=== PATIENT | male | born 1985 | race Hispanic/Latino ===

== ENCOUNTER → 2023-07-20 | Emergency (ER) | payer SELFPAY ==
[~2023-07-20] MED LIST: LORazepam 2 MG/ML VIAL ONE; NA CHLORIDE 0.9% 1,000 ML ONE
[2023-07-20 16:50] LABS: Absolute Lymphocytes (CBC) 1.8 K/uL (0.7-4.9); Hematocrit 45.9 % (39.6-49.0); Lymphocytes % 18.3 % (15.3-44.8); MCV 87.4 fL (80-100); MPV 7.2 fL (7.6-11.3); Platelets 307 thou/uL (152-406); RBC Red Blood Cell Count 5.25 M/uL (4.33-5.43)
[2023-07-20 17:10] LABS: ALT/SGPT 69 U/L (16-61); AST/SGOT 37 U/L (15-37); Alkaline Phosphatase 121 U/L (45-117); BUN Blood Urea Nitrogen 10 mg/dL (7-18); Bicarbonate 25 mEq/L (21-32); Bilirubin Direct 0.2 mg/dL (0-0.2); Bilirubin Indirect, Calculated 0.5 mg/dL (0.2-0.8); Bilirubin Total 0.7 mg/dL (0.2-1.0); Glomerular Filtration Rate 99 ml/min (=/>90); Glucose Level 121 mg/dL (74-106); Magnesium 1.6 mg/dL (1.6-2.4); Potassium 3.7 mEq/L (3.5-5.1); Protein, Total 8.5 g/dL (6.4-8.2); Sodium Level 135 mEq/L (136-145)
--- NOTE | 2023-07-20 17:20 | RAD REPORT ---
EXAM DESCRIPTION: [place] Single View07/20/2023 4:49 pm CLINICAL HISTORY: PALPITATIONS COMPARISON: No comparisons TECHNIQUE: Portable AP view of the chest. FINDINGS: The lungs are clear. No pneumothorax or effusion. The cardiomediastinal contours are unre markable. IMPRESSION: No acute cardiopulmonary process.
[2023-07-20 17:42] LABS: Troponin High Sensitivity < 3.0 pg/mL (<58.9)
--- NOTE | 2023-07-20 17:54 | EDPHYS ---
Physician Documentation [facility] Name: Alonzo Gaytan Age: 37 yrs Sex: Male : 1985 Arrival Date: 07/20/2023 Time: 15:59 Bed 22 Private MD: ED Physician Andrei Villa HPI: 07/20 16:37 This 37 yrs old Male presents to ER via Ambulatory with complaints of ms3 Palpitations. 16:37 37-year-old male with no past medical history presents for palpitations began 1 hour ms3 prior to arrival. Patient denies chest pain. Patient endorses nausea. Patient denies vomiting. Patient denies any alleviating or inciting factors. Patient endorses drinking . Pepper, denies energy drinks or coffee. Historical: - Allergies: 16:16 No Known Allergies; bp - Home Meds: 16:16 None [Active]; bp - PMHx: 16:16 None; bp - Immunization history:: Adult Immunizations up to date. - Social history:: Smoking status: Patient denies any tobacco usage or history of. ROS: 16:48 Constitutional: Negative for fever, and chills. Neck: Negative for injury, pain, and ms3 swelling, Respiratory: Negative for shortness of breath, cough, wheezing, and pleuritic chest pain, Abdomen/GI: Negative for abdominal pain, nausea, vomiting, diarrhea, and constipation, MS/Extremity: Negative for injury and deformity, Skin: Negative for injury, rash, and discoloration, 16:48 Cardiovascular: Positive for palpitations, 16:48 All other systems are negative, Exam: 16:48 Constitutional: This is a well developed, well nourished patient who is awake, alert, ms3 and in no acute distress. Head/Face: Normocephalic, atraumatic. Neck: Trachea midline, no cervical lymphadenopathy. Supple, full range of motion without nuchal rigidity, or vertebral point tenderness. No Meningismus. Chest/axilla: Normal chest wall appearance and motion. Nontender with no deformity. 16:48 Respiratory: Lungs have equal breath sounds bilaterally, clear to auscultation and percussion. No rales, rhonchi or wheezes noted. No increased work of breathing, no retractions or nasal flaring. 16:48 Cardiovascular: Rate: tachycardic, Rhythm: regular, Pulses: no pulse deficits are appreciated, Heart sounds: normal, normal S1and S2, 17:42 ECG was reviewed by the Attending Physician. ms3 Vital Signs: 16:15 BP 172 / 125; Pulse 112; Resp 18; Temp 97.6; Pulse Ox 99% ; Weight 90.72 kg; Height 5 bp ft. 8 in. ; 18:15 BP 146 / 92; Pulse 92; Resp 20; Pulse Ox 99% ; kb3 16:15 Body Mass Index 30.41 (90.72 kg, 172.72 cm) bp MDM: 16:30 Patient medically screened. ms3 16:48 Differential diagnosis: arrythmia, PVCs vs Atrial fibrillation vs Palpitations. ms3 18:11 Data reviewed: vital signs, nurses notes, lab test result(s), radiologic studies, plain ms3 films, and as a result, I will discharge patient. I considered the following discharge prescriptions or medication management in the emergency department Medications were administered in the Emergency Department. See MAR. Counseling: I had a detailed discussion with the patient and/or guardian regarding the historical points, exam findings, and any diagnostic results supporting the discharge/admit diagnosis, lab results, radiology results, the need for outpatient follow up, to return to the emergency department if symptoms worsen or persist or if there are any questions or concerns that arise at home. Special discussion: I discussed with the patient/guardian in detail that at this point there is no indication for admission to the hospital. It is understood, however, that if the symptoms persist or worsen the patient needs to return immediately for re-evaluation. ED course: Discussed labs, EKG, chest x-ray with patient and his mother. Patient to follow-up with Dr. Griffin in 2 to 3 days. On reevaluation patient is improved, alert and orient x 4, no apparent distress, nontoxic-appearing, ambulatory in emergency department, speaking full sentences. Return precautions discussed include worsening symptoms, or any other concerns. 07/20 16:20 Order name: Basic Metabolic Panel; Complete Time: 17:45 ms3 07/20 16:20 Order name: CBC with Diff; Complete Time: 17:45 ms3 07/20 16:20 Order name: D-Dimer; Complete Time: 17:45 ms3 07/20 16:20 Order name: LFT's; Complete Time: 17:45 ms3 07/20 16:20 Order name: Magnesium; Complete Time: 17:45 ms3 07/20 16:20 Order name: Troponin HS; Complete Time: 17:45 ms3 07/20 16:20 Order name: XRAY Chest (1 view); Complete Time: 17:45 ms3 07/20 16:20 Order name: EKG; Complete Time: 16:21 ms3 07/20 16:20 Order name: Cardiac monitoring; Complete Time: 16:44 ms3 07/20 16:20 Order name: EKG - Nurse/Tech; Complete Time: 16:44 ms3 07/20 16:20 Order name: IV Saline Lock; Complete Time: 16:44 ms3 07/20 16:20 Order name: Labs collected and sent; Complete Time: 16:44 ms3 07/20 16:20 Order name: O2 Per Protocol; Complete Time: 16:44 ms3 07/20 16:20 Order name: O2 Sat Monitoring; Complete Time: 16:44 ms3 EC:42 Rate is 112 beats/min. Rhythm is regular. Left axis deviation noted. CT interval is ms3 normal. QRS interval is normal. Clinical impression: Sinus tachycardia. Interpreted by me. Reviewed by me. Administered Medications: 16:43 Drug: Ativan IVP 1 mg IVP once Route: IVP; Site: right forearm; bp 16:43 Drug: NS 0.9% IV 1000 ml IV at 1 bolus Per protocol; 1000 mL bolus Route: IV; Rate: 1 bp bolus; Site: right forearm; Disposition Summary: 07/20/23 17:53 Discharge Ordered Notes: Location: Home ms3 Condition: Stable ms3 Diagnosis - Palpitations ms3 - Elevated blood-pressure reading, without diagnosis of hypertension ms3 Followup: ms3 - With: Samuel Griffin, DO - When: 2 - 3 days - Reason: Recheck today's complaints Discharge Instructions: - Discharge Summary Sheet ms3 - Palpitations ms3 - Hypertension, Adult, [id number] ms3 - DASH Eating Plan ms3 Forms: - Medication Reconciliation Form ms3 - Thank You Letter ms3 - Antibiotic Education ms3 - Prescription Opioid Use ms3 - Patient Portal Instructions ms3 - Leadership Thank You Letter ms3 - Work release form kb3 Signatures: Dispatcher [employer] Guille Whitman RN RN bp Andrei Villa DO DO ms3 Corrections: (The following items were deleted from the chart) 17:44 17:19 ECG was reviewed by the Attending Physician. ms3 ms3 17:44 17:19 Rate is 112 beats/min. Rhythm is regular. Left axis deviation noted. CT interval ms3 is normal. QRS interval is normal. Clinical impression: NSR w/ Non-specific ST/T Changes. Interpreted by me. Reviewed by me. ms3
--- NOTE | 2023-07-20 17:54 | ER ---
Nurse's Notes 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 Coronavirus screen: At this bp time, the client does not indicate any symptoms associated with coronavirus-19. Ebola Screen: No symptoms or risks identified at this time. Initial Sepsis Screen: Does the patient meet any 2 criteria? No. Patient's initial sepsis screen is negative. Does the patient have a suspected source of infection? No. Patient's initial sepsis screen is negative. Risk Assessment: Do you want to hurt yourself or someone else? Patient reports no desire to harm self or others. Onset of symptoms was July 20, 2023 at 15:00. 16:15 Method Of Arrival: Ambulatory bp 16:15 Acuity: LINDSAY 3 bp Triage Assessment: 16:16 General: Appears in no apparent distress. Behavior is cooperative, appropriate for age, bp anxious. Pain: Denies pain. Cardiovascular: Reports palpitations. Historical: - Allergies: 16:16 No Known Allergies; bp - Home Meds: 16:16 None [Active]; bp - PMHx: 16:16 None; bp - Immunization history:: Adult Immunizations up to date. - Social history:: Smoking status: Patient denies any tobacco usage or history of. Screenin:17 [facility] ED Fall Risk Assessment (Adult) History of falling in the last 3 months, bp including since admission No falls in past 3 months (0 pts). Abuse screen: Denies threats or abuse. Denies injuries from another. Nutritional screening: No deficits noted. Tuberculosis screening: No symptoms or risk factors identified. Assessment: 17:00 General: Appears in no apparent distress. Behavior is calm, cooperative. kb3 17:00 Cardiovascular: Reports palpitations. kb3 Vital Signs: 16:15 BP 172 / 125; Pulse 112; Resp 18; Temp 97.6; Pulse Ox 99% ; Weight 90.72 kg; Height 5 bp ft. 8 in. ; 18:15 BP 146 / 92; Pulse 92; Resp 20; Pulse Ox 99% ; kb3 16:15 Body Mass Index 30.41 (90.72 kg, 172.72 cm) bp ED Course: 16:00 Patient arrived in ED. rg4 16:14 Andrei Villa DO is Attending Physician. ms3 16:16 Triage completed. bp 16:16 Arm band placed on. bp 16:17 Patient has correct armband on for positive identification. bp 16:51 XRAY Chest (1 view) In Process Unspecified. EDMS 17:52 Samuel Griffin DO is Referral Physician. ms3 18:15 Provided Education on: Discharge, follow up, medications. kb3 18:15 No provider procedures requiring assistance completed. IV discontinued, intact, kb3 bleeding controlled, No redness/swelling at site. Administered Medications: 16:43 Drug: Ativan IVP 1 mg IVP once Route: IVP; Site: right forearm; bp 16:43 Drug: NS 0.9% IV 1000 ml IV at 1 bolus Per protocol; 1000 mL bolus Route: IV; Rate: 1 bp bolus; Site: right forearm; Medication: 18:15 VIS not applicable for this client. kb3 Outcome: 17:53 Discharge ordered by MD. ms3 18:15 Discharged to home ambulatory, kb3 18:15 Condition: stable 18:15 Discharge instructions given to patient, Instructed on discharge instructions, follow up and referral plans. medication usage, Demonstrated understanding of instructions, follow-up care, medications, Prescriptions given X 1, 18:41 Patient left the ED. kb3 Signatures: Dispatcher [employer] EDWA Lesley James rg4 Guille Clarke, RN RN bp Andrei Villa DO DO ms3 Maryann Shi, RN RN kb3
[2023-07-20 22:26] VITALS: BP 146/92; TEMP 97.6; O2SAT 99
--- NOTE | 2023-07-21 17:12 | EKG ---
Test Date: 2023-07-20 Test Time: 16:27:39 Collections Associate: BP MEASUREMENT RESULTS: Intervals: Rate: 112 IL: 126 QRSD: 78 QT: 328 QTc: 447 [place]: P: 33 IL: 126 QRS: -66 T: 49 INTERPRETIVE STATEMENTS: Sinus tachycardia Left anterior fascicular block Anterolateral infarct, age undetermined Abnormal ECG No previous ECG available for comparison Electronically Signed On 07-21-23 17:10:17 FOOD SERVICE ASSOCIATE by Derrick Strickland
== END ==
LOC: ER 15:59
DX: R00.2 Palpitations (principal); R03.0 Elevated blood-pressure reading, without diagnosis of hypertension
CPT/HCPCS: 36415; 71045; 80048; 80076; 83735; 84484; 85025; 85379; 93005; 96374; 99284; J7030